=== PATIENT | female | born 1975 | race Caucasian/White ===

== ENCOUNTER 2021-02-18 15:40 | Emergency (ER) | payer OTHER ==
[~2021-02-18] VITALS: Ht 157.5 cm; Wt 81.0 kg
[2021-02-18 16:21] VITALS: BP 127/65
[2021-02-18] MEDS ORDERED: TETanus/Pertussis (Acell)/Diphther VAC/PF (Tdap-Adult) 0.5ml syringe IMVAC ONE (17:10)
[2021-02-18] MEDS ORDERED: AMOX-422 PO (19:34)
== END 2021-02-18 19:59 | disposition home or self-care (01) ==
LOC: ER 15:43
DX: S71.112A Laceration without foreign body, left thigh, initial encounter (principal); Z20.3 Contact with and (suspected) exposure to rabies; Z79.2 Long term (current) use of antibiotics; W54.0XXA Bitten by dog, initial encounter; Y93.89 Activity, other specified; Y92.89 Other specified places as the place of occurrence of the external cause; Y99.8 Other external cause status
CPT/HCPCS: 90471; 90715; 99283